=== PATIENT | male | born 1955 | race Caucasian/White ===

== ENCOUNTER 2017-11-03 08:01 | Day surgery (SDC) | payer OTHER ==
--- NOTE | 2017-10-28 13:17 | GHP ---
[f rep st] PREOP HISTORY AND PHYSICAL DATE OF ADMISSION: 11/03/2017 CHIEF COMPLAINT: Right upper extremity AVF pain. HISTORY OF PRESENT ILLNESS: Cristofer is a 62-year-old male with end-stage renal disease, status post k idney transplant, relieving his need for hemodialysis via his right upper extremity AVF. He presents for evaluation of his right upper extremity AVF. 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 He also describes pin-pricking pain and pruritus. Some of the overlapping skin is red. No hand numbness, tingling, coolness or pain. He would like t o discuss surgery to have his AVF removed because he does not need it any more. PAST MEDICAL HISTORY: Coronary artery disease, diabetes, end-stage renal disease, GERD, hypertension , hyperlipidemia, hypertensive renal disease, neuropathy, kidney transplant, obstructive sleep apnea. MEDICATIONS: Aspirin 81 mg, azathioprine 50 mg tablets, calcitriol 0.5 mcg, CoQ10 100 mg, gabapentin 300 mg, glipizide 2.5 mg, hydralazine 50 mg, oral iron, Lasix 40 mg, metformin 500 mg, metoprolol avelar ccinate 50 mg extended release, omega-3, pravastatin 40 mg, prednisone 2.5 mg, Prograf 1 mg, valsarta n 160 mg, vitamin C 1000 mg. PHYSICAL EXAM: GENERAL: A 62-year-old male, well dressed, well nourished, well appearing, in no acu te distress. HEENT: Head normocephalic. No gross hearing deficits. Moist mucous membranes. Pupil s are equal and round. No scleral icterus. CARDIAC: Regular rate and rhythm. No peripheral edema. Right upper extremity AVF without thrill and is firm. Overlying skin is slightly pink. He does rice ve a radial pulse. The AVF does limit the flexion of his elbow. RESPIRATORY: Clear to auscultation bilaterally. No increased work of breathing. ABDOMEN: Soft, nontender. Normoactive bowel sounds. MUSCULOSKELETAL: Normal gait. Moves all extremities equally. INTEGUMENTARY: Skin is warm and dr y. No rashes. NEUROLOGIC: Awake, alert. Motor grossly intact. PSYCHIATRIC: Normal mood and affe ct. IMPRESSION AND PLAN: This is a 62-year-old male with a history of end-stage renal disease, who was p reviously on hemodialysis, however, no longer requires it due to a functioning kidney transplant. Hi s right upper extremity arteriovenous fistula has partially thrombosed, which is causing him discomfo rt with moving his arm as well as bending his arm. There is mild redness but no erythema to suggest infection. He says he has been scratching the arteriovenous fistula, which could explain the redness . We discussed arteriovenous fistula ligation and removal. We discussed the options and risks. Risks of the surgery include, but are not limited to, bleeding, infection, edema, and blood clots. The rodrigo fontana understands and wishes to proceed with a right upper extremity arteriovenous fistula ligation an d removal. /[id number]/MODL
[2017-11-03] MEDS ORDERED: LIDOCAINE 1% 2 ML INJ ID PRN (08:19)
[2017-11-03] MEDS ORDERED: LR 1,000 ML IV ONE (08:19)
[2017-11-03] MEDS ORDERED: ceFAZolin 2 GM/SWFI 2 GM/20 ML SYR IVP ONE (08:19)
[2017-11-03] MEDS ORDERED: ceFAZolin 2 GM/DEXTROSE 100 ML IV ONE (09:00)
--- NOTE | 2017-11-03 09:32 | PDHPUP ---
History & Physical Update H&P update statement: This history and physical update is based on an assessment of the patient which was completed after admission or registration (within 24 hours), but prior to the surgery/procedure. H&P update: H&P reviewed & patient examined, no change in patient's condition since H&P completed
[2017-11-03] MEDS ORDERED: NA BICARBONATE 50 MEQ/50 ML VIAL ONE (09:38)
[2017-11-03] MEDS ORDERED: LIDOCAINE 2% 5 ML SDV ONE (09:39)
[2017-11-03] MEDS ORDERED: EPINEPHrine 1 MG/ML INJ ONE (09:39)
--- NOTE | 2017-11-03 09:39 | PDANEPAE ---
ANE History of Present Illness thrombosed AVF here for removal ANE Past Medical History - Cardiovascular History Hx Hypertension: Yes Hx Arrhythmias: No Hx Chest Pain: No Hx Coronary Artery / Peripheral Vascular Disease: Yes Hx CHF / Valvular Disease: No Hx Palpitations: No Cardiovascular History Comment: CO SILENT- DX STRESS TEST. NO CP - Pulmonary History Hx COPD: No Hx Asthma/Reactive Airway Disease: No Hx Recent Upper Respiratory Infection: No Hx Oxygen in Use at Home: No Hx Sleep Apnea: No Sleep Apnea Screening Result - Last Documented: Positive Pulmonary History Comment: POS TAMMI- USES CPAP. CAN GET SOB W STAIRS, CAN WALK STAIRS AND CAN WALK 1 CO - Neurologic History Hx Cerebrovascular Accident: No Hx Seizures: Yes Hx Dementia: No Neurologic History Comment: PERIPH NEUROPATHY. LEG PAIN, L WORSE. SPINAL STENOSIS. SEIZURE X 2 [place] CHILD RT HYPER CALCIUM - Endocrine History Hx Diabetes: No Endocrine History Comment: HYPOPARATHYROID - Renal History Hx Renal Disorders: Yes Renal History Comment: KIDNEY TRANSPLANT '. BK VIRUS INTERNALLY- WATCHING KIDNEY FOR ANY REJECTION. HAD R ARM FISTULA PLACED IN R ARM ' - Liver History Hx Hepatic Disorders: No - Neurological & Psychiatric Hx Hx Neurological and Psychiatric Disorders: Yes Neurological / Psychiatric History Comment: bilat foot neuropthy - Cancer History Hx Cancer: No - Congenital Disorder History Hx Congenital Disorders: Yes Congenital History Comment: HYPOPARATHYROID - GI History Hx Gastrointestinal Disorders: No - Other Health History Other Health History: PARTIAL PLATE LOWER REM. MISSING TEETH. SPINAL STENOSIS - Chronic Pain History Chronic Pain: Yes (left arm sore elbow) - Surgical History Prior Surgeries: KIDNEY TRANSPLANT '. L BICEPS TENDON REP L. FISTULA R ARM. DALE CATARACTS ANE Review of Systems Review of Systems: - Exercise capacity METS (RN): 4 METS ANE Patient History - Allergies Allergies/Adverse Reactions: No Known Allergies Allergy (Verified 11/19/13 17:01) - Home Medications Home Medications: Ascorbic Acid [Vitamin C 500 mg (*)] 1,000 mg PO DAILY 12/15/13 [Last Taken ] Aspirin [Aspirin 81mg (*)] 81 mg PO HS 12/15/13 [Last Taken 11/02/17] Calcitriol 0.5 mcg PO DAILY 12/15/13 [Last Taken 11/02/17] Calcium Carb W/Vit D [Calcium Carb W/Vit D 500/200 (*)] 500 mg PO BID 12/15/13 [ Last Taken 11/02/17] Clopidogrel Bisulfate [Plavix (*)] 75 mg PO DAILY 12/15/13 [Last Taken 12/23/13] Docusate Sodium [Colace 100 MG (*)] 100 mg PO BID 12/15/13 [Last Taken 11/02/17] Gabapentin [Neurontin 300 MG (*)] 300 mg PO Q2D 12/15/13 [Last Taken 11/02/17] Lisinopril [Zestril 20 mg (*)] 40 mg PO DAILY 12/15/13 [Last Taken 11/02/17] Metoprolol Succinate Xr [Toprol Xl] 25 mg PO DAILY 12/15/13 [Last Taken 11/02/17 ] [place]-3 Fatty Acids [Fish Oil 1000 mg (*)] 2,000 mg PO DAILY 12/15/13 [Last Taken 11/02/17] Pravastatin Sodium [Pravachol] 40 mg PO DAILY 12/15/13 [Last Taken 11/02/17] Tacrolimus [Prograf] 3 mg PO BID 12/15/13 [Last Taken 11/03/17] Temazepam [Restoril 15 MG (*)] 15 mg PO HS 12/15/13 [Last Taken 12/26/13] azaTHIOprine [Imuran 50 mg (*)] 100 mg PO BID 12/15/13 [Last Taken 11/03/17] Magnesium Oxide [Magnesium Oxide 400 mg (OTC)] 400 mg PO BID 12/19/13 [Last Taken 11/02/17] Prednisone 2.5 mg PO DAILY 11/03/17 [Last Taken 11/02/17] Valsartan/Hctz 50 mg PO DAILY 11/03/17 [Last Taken 11/02/17] - NPO status NPO Since - Liquids (Date): 11/03/17 NPO Since - Liquids (Time): 07:10 NPO Since - Solids (Date): 11/02/17 NPO Since - Solids (Time): 20:00 - Anes Hx Anes Hx: no prior problems - Smoking Hx Smoking Status: Never smoked - Alcohol Use Alcohol Use: None - Family Anes Hx Family Anes Hx: none Family Hx Anesthesia Complications: NONE ANE Labs/Vital Signs - Vital Signs Blood Pressure: 137/76 Heart Rate: 55 Respiratory Rate: 16 O2 Sat (%): 97 Height: 175.26 cm Weight: 108.409 kg ANE Physical Exam - Airway Neck exam: FROM Mallampati Score: Class 2 Mouth exam: poor dentition, dentures - Pulmonary Pulmonary: no respiratory distress - Cardiovascular Cardiovascular: regular rate and rhythym - ASA Status ASA Status: III ANE Anesthesia Plan Anesthesia Plan: GA w LMA
[2017-11-03] MEDS ORDERED: MIDAZOLAM 2 MG/2 ML VIAL IVP ONE (09:40)
[2017-11-03] MEDS ORDERED: PROPOFOL 200 MG/20 ML VIAL ONE ×2 (09:44→09:45)
[2017-11-03] MEDS ORDERED: fentaNYL 100 MCG/2 ML INJ ONE (09:44)
[2017-11-03] MEDS ORDERED: MIDAZOLAM 2 MG/2 ML VIAL ONE (09:46)
[2017-11-03] MEDS ORDERED: LIDOCAINE 2% 100 MG/5 ML SYR ONE (09:48)
--- NOTE | 2017-11-03 09:50 | POSTOPPROG ---
Post Op Note Date of Operation: 11/03/17 Surgeon: Deloris Lynn Press Operator Assistant: Deloris Lynn Anesthesiologist: Eric Conley Anesthesia: GET(General Endotracheal) Pre-op Diagnosis: hx of CRF, now c renal transplant, painful AVF not in use and limits ROM Post-op Diagnosis: same Procedure: ligation and excision of aneursymal RUE brachiocephalic AVF Findings: thrombosed aneurysmal AVF Inf/Abcess present in the surg proc area at time of surgery?: No EBL: 50-100 Complications: none Drains: Evangelist Mccrary Specimen(s): aneurysmal AVF to pathology
[2017-11-03] MEDS ORDERED: PROTAMINE SULFATE 50 MG/5 ML VIAL IVP ONE (10:06)
[2017-11-03] MEDS ORDERED: PAPAVERINE HCL 60 MG/2 ML SDV ONE (10:06)
[2017-11-03] MEDS ORDERED: THROMBIN (BOVINE) 5,000 UNIT VIAL TP ONE (10:06)
[2017-11-03] MEDS ORDERED: THROMBIN (BOVINE) 20,000 UNIT SPRAY TP ONE (10:06)
[2017-11-03] MEDS ORDERED: BUPIVACAINE 0.5% 30 ML SDV ONE ×2 (10:06→10:14)
[2017-11-03] MEDS ORDERED: HYDROCODONE/APAP 5/325 TAB PO PRN (10:59)
[2017-11-03] MEDS ORDERED: ACETAMINOPHEN 500 MG TAB PO PRN (10:59)
[2017-11-03] MEDS ORDERED: fentaNYL 100 MCG/2 ML INJ IVP PRN (10:59)
[2017-11-03] MEDS ORDERED: ONDANSETRON 4 MG/2 ML VIAL IVP PRN (10:59)
[2017-11-03] MEDS ORDERED: NALOXONE HCL 0.4 MG/ML INJ IVP PRN (10:59)
[2017-11-03] MEDS ORDERED: PROMETHAZINE HCL 25 MG/ML INJ IVP PRN (10:59)
[2017-11-03] MEDS ORDERED: oxyCODONE IR 5 MG TAB PO PRN (10:59)
--- NOTE | 2017-11-03 11:01 | POSTANESTH ---
Post Anesthetic Evaluation Cardiovascular Status: Normal, Stable, Similar to Pre-Op Cond Respiratory Status: Normal, Stable, Similar to Pre-op Cond. Level of Consciousness/Mental Status: Can Participate in Eval Pain Control: Adequate, Prn Tx Ordered Nausea/Vomiting Control: Adequate, Prn Tx Ordered Complications Possibly Related to Anesthesia: None Noted
[2017-11-03 12:33] VITALS: BP 135/80
== END 2017-11-03 12:50 | disposition home or self-care (01) ==
LOC: FSGY 08:01
PROVIDERS: ATTEND Surgery
DX: T82.848A Pain due to vascular prosthetic devices, implants and grafts, initial encounter (principal); T82.868A Thrombosis due to vascular prosthetic devices, implants and grafts, initial encounter; N18.6 End stage renal disease; I25.10 Atherosclerotic heart disease of native coronary artery without angina pectoris; E11.22 Type 2 diabetes mellitus with diabetic chronic kidney disease; K21.9 Gastro-esophageal reflux disease without esophagitis; I12.0 Hypertensive chronic kidney disease with stage 5 chronic kidney disease or end stage renal disease; G47.33 Obstructive sleep apnea (adult) (pediatric); Z79.82 Long term (current) use of aspirin; Z94.0 Kidney transplant status
CPT/HCPCS: J0171; J0690; J1644; J2001; J2250; J2440; J2704; J2720; J3010

== ENCOUNTER 2018-11-30 18:19 | Observation (INO) | payer OTHER | END 2018-12-01 15:12 | disposition home or self-care (01) | LOC: CED 18:19 → CEDHOLD 21:06 → F2W 22:27 ==